=== PATIENT | male | born 1955 | race Caucasian/White ===

== ENCOUNTER 2017-12-09 14:41 | Emergency (ER) | payer OTHER ==
[~2017-12-09] VITALS: Ht 185.4 cm; Wt 112.5 kg
--- NOTE | 2017-12-09 15:38 | ED UPPER/LOWER EXTREMITY COMPL ---
History of Present Illness General Chief Complaint: Upper Extremity Injury Stated Complaint: RT ELBOW PIAN FELT POP Source: patient Exam Limitations: no limitations Vital Signs & Intake/Output Vital Signs & Intake/Output Vital Signs Date Time Temp Pulse Resp B/P B/P Pulse O2 O2 Flow FiO2 Mean Ox Delivery Rate 12/09 1607 98.4 66 18 122/69 96 Room Air 12/09 1444 96.4 69 18 134/74 97 Room Air Room Air Allergies Coded Allergies: Penicillins (UNKNOWN 12/09/17) Reconcile Medications Oxycodone HCl/Acetaminophen (Percocet 5-325 MG Tablet) 5 MG-325 MG TABLET 1 TAB PO BID PRN PAIN Triage Note: TRIAGE: 62 Y/O MALE PRESENTS C/O 22/06 RIGHT BICEP PAIN RADIATING FROM BICEP DOWN THROUGH ELBOW. PATIENT DECLINES SLING AT PRESENT. Triage Nurses Notes Reviewed? yes Onset: Abrupt Duration: constant Timing: single episode today Severity: severe Severity Numbers: 10 HPI: Patient is a 62-year-old male with a past medical history of CAD with cardiac stents currently taking Plavix, diabetes and hypertension who presents emergency room stating that earlier today while throwing down and LAUNDRY baskets he had acute onset of sharp stabbing severe right-sided elbow and biceps pain Patient is right-hand dominant. Denies any shoulder or wrist pain or right arm paresthesia states that elbow movements make worse (Cristóbal Silva) Past History Travel History Traveled to [place] past 21 day No Medical History Any Pertinent Medical History? see below for history Neurological: NONE EENT: NONE Cardiovascular: hypertension, hyperlipidemia, CARDIAC STENTS X6 Endocrine: diabetes Surgical History Surgical History: non-contributory Psychosocial History What is your primary language [place] Tobacco Use: Never used ETOH Use: denies use Illicit Drug Use: denies illicit drug use Family History Hx Contributory? No (Cristóbal Silva) Review of Systems Review of Systems Constitutional: Reports: no symptoms. EENTM: Reports: no symptoms. Respiratory: Reports: no symptoms. Cardiovascular: Reports: no symptoms. Gastrointestinal/Abdominal: Reports: no symptoms. Genitourinary: Reports: no symptoms. Musculoskeletal: Reports: see HPI, joint pain. Skin: Reports: no symptoms. Neurological/Psychological: Reports: no symptoms. Hematologic/Endocrine: Reports: no symptoms. Immunological: Reports: no symptoms. All Other Systems: Reviewed and Negative (Cristóbal Silva) Physical Exam Physical Exam General Appearance: no apparent distress, alert, comfortable Head: atraumatic Eyes: Bilateral: normal appearance. Ears, Nose, Throat: hearing grossly normal Neck: normal inspection Cardiovascular/Respiratory: no respiratory distress Peripheral Pulses: 2+ radial (R) Neurologic/Tendon: normal sensation, normal motor functions, normal tendon functions, responds to pain, no evidence tendon injury, no pulse deficit Skin: intact, normal color Comments: Right shoulder normal inspection nontender Right elbow generalized point tenderness noted Hook test intact decreased active range of motion with flexion Right wrist and hand nontender normal inspection Right upper extremity biceps muscle belly moderate point tenderness dermatomes intact (Cristóbal Silva) Progress Differential Diagnosis: arterial insufficiency, compartment syndrome, contusion, dislocation, DVT, fracture, gout, septic arthritis, sprain, tendon injury Plan of Care: Orders Procedure Date/time Status Durable Medical Equipment 12/09 4818 Active On examination patient was neurovascularly intact, no suspicion at this time of distal biceps tendon rupture there was palpable distal tendon on exam patient had decreased active range of motion however there was active flexion and extension X-rays were resulted no fractures however there is concerns of right elbow effusion Willian wrap will be placed along with shoulder immobilizer Willian wrap was placed to right elbow along with shoulder immobilizer pre-and post- neurovascular was intact Patient will follow up with established orthopedic doctor discussed x-ray results with patient Diagnostic Imaging: Viewed by Me: Radiology Read. Radiology Impression: no fracture Comments: PATIENT: STEPHANIE VERA PRESENT AGE: 62 PATIENT ACCOUNT NO: [id number] : 56 LOCATION: [facility] ORDERING PHYSICIAN: Cristóbal ROSARIO SERVICE DATE: 12/09/17 EXAM TYPE: RAD - XRY-ELBOW 3 OR MORE VIEWS, R EXAMINATION: XR ELBOW, RIGHT CLINICAL INFORMATION: Atraumatic right elbow pain. Patient unable to extend right arm. COMPARISON: None TECHNIQUE: 5 views of the right elbow. FINDINGS: There is elevation of the anterior fat pad suggesting distention of the joint capsule. There is no definite fracture with special attention to the radial head. Olecranon enthesophyte is noted. The alignment is maintained. The joint spaces are maintained. The soft tissues are within normal limits. IMPRESSION: Elevation of the anterior fat pad compatible with joint effusion. No evidence of fracture or dislocation. Olecranon enthesophyte. DICTATED BY: Prieto Wadsworth MD DATE/TIME DICTATED:12/09/171549 DIRECTOR ONLINE MARKETING:JHONNY DATE/TIME TRANSCRIBED:12/09/171549 CONFIDENTIAL, DO NOT COPY WITHOUT APPROPRIATE AUTHORIZATION. <Electronically signed in Other Vendor System> SIGNED BY: Prieto Wadsworth MD 12/09/17 9038 (Cristóbal Silva) Departure Departure Disposition: HOME OR SELF CARE Condition: Stable Clinical Impression Primary Impression: Right elbow pain Secondary Impressions: Sprain of elbow, right, Strain of right biceps Referrals: Haritha GARBER,Andreia Oconnell (PCP/Family) Dickson Phelps MD Additional Instructions: As discussed begin icing the area directly 20 minutes every 2 hours begin the prescription of Percocet for breakthrough pain Begin using the shoulder immobilizer provided to the emergency room for support until he can move the arm without pain. If no better in 3 days follow up with your established orthopedic Dr. Phelps If symptoms worsen return to emergency room Prescriptions are waiting at [facility] Departure Forms: Customer Survey General Discharge Information Prescriptions: Current Visit Scripts Oxycodone HCl/Acetaminophen (Percocet 5-325 MG Tablet) 1 TAB PO BID PRN PAIN #10 TAB (Cristóbal Silva) PA/VIDEO TECHNICIAN Co-Sign Statement Statement: ED Attending supervision documentation- [] I saw and evaluated the patient. I have also reviewed all the pertinent lab results and diagnostic results. I agree with the findings and the plan of care as documented in the PA's/VIDEO TECHNICIAN's documentation. [X] I have reviewed the ED Record and agree with the PA's/VIDEO TECHNICIAN's documentation. [] Additions or exceptions (if any) to the PAs/VIDEO TECHNICIAN's note and plan are summarized below: [] (Pablo GARBER,Ernesto Hurley)
--- NOTE | 2017-12-09 15:59 | RADIOLOGY REPORT ---
EXAMINATION: XR ELBOW, RIGHT CLINICAL INFORMATION: Atraumatic right elbow pain. Patient unable to extend right arm. COMPARISON: None TECHNIQUE: 5 views of the right elbow. FINDINGS: There is elevation of the anterior fat pad suggesting distention of the joint capsule. There is no definite fracture with special attention to the radial head. Olecranon enthesophyte is noted. The alignment is maintained. The joint spaces are maintained. The soft tissues are within normal limits. IMPRESSION: Elevation of the anterior fat pad compatible with joint effusion. No evidence of fracture or dislocation. Olecranon enthesophyte.
[2017-12-09] MEDS ORDERED: PERCOCET 5-3251 EACH PO (16:05)
[2017-12-09 16:07] VITALS: BP 122/69
== END 2017-12-09 16:18 ==
LOC: ERH 14:41
DX: S53.401A Unspecified sprain of right elbow, initial encounter (principal); S46.211A Strain of muscle, fascia and tendon of other parts of biceps, right arm, initial encounter; X58.XXXA Exposure to other specified factors, initial encounter; Y92.9 Unspecified place or not applicable; Y93.9 Activity, unspecified
CPT/HCPCS: 73080-RT